=== PATIENT | female | born 1940 | race Caucasian/White ===

== ENCOUNTER 2018-07-18 15:02 | Inpatient (IN) | payer MEDICARE ==
[~2018-07-18] VITALS: Ht 167.6 cm; Wt 86.1 kg
--- NOTE | ~2018-07-18 | MORECARE ---
CASE MANAGEMENT DISCHARGE SUMMARY PATIENT: ANICETO SAHA UNIT: [id number] ADM DATE: 07/18/18 AGE: 78 : 40 SEX: F ROOM/BED: D.8009 AUTHOR: DEWEY,DOC PHYSICIAN: REFERRING PHYSICIAN: ANH BIRCH MD DATE OF SERVICE: 07/18/18 Discharge Plan Patient Name: ANICETO SAHA Facility: [facility]:[place] : 1940 Planned Disposition: Anticipated Discharge Date: Discharge Date: Expected LOS: Initial Reviewer: [email or web address] Initial Review Date: 07/18/2018 Generated: 07/18/18 5:46 pm DCP- Discharge Planning Updated by [email or web address]: Sylvie Fowler on 07/18/18 3:[address] Patient Name: ANICETO SAHA Admission Status: ER Accout number: [id number] Admission Date: 07-18-2018 : 1940 Admission Diagnosis: Attending: ANH BIRCH Current LOS: 1 Anticipated DC Date: Planned Disposition: Primary Insurance: AETNA MEDICARE PPO or HMO Discharge Planning Comments: CM SPOKE WITH PATIENT ABOUT DC PLANNING/NEEDS. STATES PLANS TO DC TO HOME WITH WHEN DISCHARGED. NO FAMILY IN THE ROOM AT THIS TIME AND PATIENT IS SOMEWHAT CONFUSED. SHE WAS TRANSFERRED HERE FROM [place]. PATIENT STATES SHE WAS RECENTLY IN REHAB AT [place], UNSURE IF SHE WAS THERE PRIOR TO GOING TO HOSPITAL AT [place]. CM MAY NEED TO GET MORE INFORMATION FROM THE FAMILY WHEN THEY ARRIVE. CM WILL FOLLOW AND ASSIST NEEDED WITH DC PLANNING/NEEDS. Mother Tester: Sylvie Fowler DCPIA - Discharge Planning Initial Assessment Updated by [id number]: Sylvie Fowler on 07/18/18 4:41 pm * Is the patient Alert and Oriented? No * PCP PRUITT * Pharmacy [facility] IN [place] * Preadmission Environment Acute Care Facility * Facility Name [facility] * ADLs Partial Dependent * Partial ADLs (Assistance needed) Ambulation * Equipment Oxygen Walker * List name and contact numbers for known caregivers / representatives who currently or will assist patient after discharge: GAGANDEEP, , * Community resources currently utilized None Last DP export: 12/8/18 3:33 p Patient Name: ANICETO SAHA Page [phone] at 1646 All edits/amendments must be made on the electronic document DICTATION DATE: 07/18/181645 FIRE PROTECTION FABRICATOR: ZEE 07/18/181645 RPT#: [id number] DC DATE: STATUS: ADM IN [facility] [address] [place] [address] END OF REPORT
--- NOTE | ~2018-07-18 | MORECARE ---
CASE MANAGEMENT DISCHARGE SUMMARY PATIENT: ANICETO SAHA UNIT: [id number] ADM DATE: 07/18/18 AGE: 78 : 40 SEX: F ROOM/BED: D.2303 AUTHOR: DEWEY,DOC PHYSICIAN: REFERRING PHYSICIAN: ANH BIRCH MD DATE OF SERVICE: 07/25/18 Discharge Plan Patient Name: ANICETO SAHA Facility: [facility]:[place] : 1940 Planned Disposition: Home Anticipated Discharge Date: Discharge Date: Expected LOS: Initial Reviewer: [email or web address] Initial Review Date: 07/18/2018 Generated: 07/25/18 7:11 pm Comments DCP- Discharge Planning Updated by [email or web address]: Sraah Eaton on 07/25/18 5:[address] LATE ENTRY 1140 CM ADVISED LATE AM THAT THE DOCTORS HAD DISCUSSED HOSPICE CARE WITH THE PATIENT AND FAMILY. [address] WINTER[address] ADVISED CM THAT [facility] CONSULT WOULD BE APPROPRIATE. CM NOTIFIED [facility] AND SPOKE WITH DAVY. THE HOSPICE NURSE WAS IN HOUSE WITH ANOTHER REFERRAL. PACKET PREPARED FOR REFERRAL. HOSPICE NURSE ON SITE. CM HAD ADVISED PATIENT' SON THAT THE NURSE WAS PRESENT IN THE BUILDING. 1700 NURSE MET WITH THE FAMILY, REVIEWED THE PACKET AND PATIENT HAS BEEN ACCEPTED TO [facility]. DCP- Discharge Planning Updated by [email or web address]: Sylvie Fowler on 07/18/18 3:[address] Patient Name: ANICETO SAHA Admission Status: ER Accout number: [id number] Admission Date: 07-18-2018 : 1940 Admission Diagnosis: Attending: ANH BIRCH Current LOS: 1 Anticipated DC Date: Planned Disposition: Primary Insurance: AETNA MEDICARE PPO or HMO Discharge Planning Comments: CM SPOKE WITH PATIENT ABOUT DC PLANNING/NEEDS. STATES PLANS TO DC TO HOME WITH WHEN DISCHARGED. NO FAMILY IN THE ROOM AT THIS TIME AND PATIENT IS SOMEWHAT CONFUSED. SHE WAS TRANSFERRED HERE FROM [place]. PATIENT STATES SHE WAS RECENTLY IN REHAB AT [place], UNSURE IF SHE WAS THERE PRIOR TO GOING TO HOSPITAL AT [place]. CM MAY NEED TO GET MORE INFORMATION FROM THE FAMILY WHEN THEY ARRIVE. CM WILL FOLLOW AND ASSIST NEEDED WITH DC PLANNING/NEEDS. Washerette Machine Operator: Sylvie Fowler DCPIA - Discharge Planning Initial Assessment Updated by [email or web address]: Sylvie Fowler on 07/18/18 4:41 pm * Is the patient Alert and Oriented? No * PCP PRUITT * Pharmacy [facility] IN [place] * Preadmission Environment Acute Care Facility * Facility Name [facility] * ADLs Partial Dependent * Partial ADLs (Assistance needed) Ambulation * Equipment Oxygen Walker * List name and contact numbers for known caregivers / representatives who currently or will assist patient after discharge: GAGANDEEP, AMBER, * Community resources currently utilized None Last DP export: 07/21/18 11:46 Patient Name: ANICETO SAHA Page 28827 at 1811 All edits/amendments must be made on the electronic document DICTATION DATE: 07/25/181809 PROFESSIONAL ATHLETES COACH: ZEE 07/25/181809 RPT#: [id number] [place] DATE: STATUS: ADM IN [facility] [address] [place] [address] END OF REPORT
--- NOTE | ~2018-07-18 | MORECARE ---
CASE MANAGEMENT DISCHARGE SUMMARY PATIENT: ANICETO SAAH UNIT: [id number] ADM DATE: 07/18/18 AGE: 78 : 40 SEX: F ROOM/BED: D.2303 AUTHOR: DEWEY,DOC PHYSICIAN: REFERRING PHYSICIAN: ANH BIRCH MD DATE OF SERVICE: 07/27/18 Discharge Plan Patient Name: ANICETO SAHA Facility: [facility]:[place] : 1940 Planned Disposition: Home Anticipated Discharge Date: Discharge Date: 07/25/2018 Expected LOS: Initial Reviewer: [email or web address] Initial Review Date: 07/18/2018 Generated: 07/27/18 11:05 am Comments DCP- Discharge Planning Updated by [email or web address]: Sarah Eaton on 07/25/18 5:[address] LATE ENTRY 1140 CM ADVISED LATE AM THAT THE DOCTORS HAD DISCUSSED HOSPICE CARE WITH THE PATIENT AND FAMILY. [address] DR WINTER[address] ADVISED THAT [facility] CONSULT WOULD BE APPROPRIATE. CM NOTIFIED [facility] AND SPOKE WITH DAVY. THE HOSPICE NURSE WAS IN HOUSE WITH ANOTHER REFERRAL. PACKET PREPARED FOR REFERRAL. HOSPICE NURSE ON SITE. CM HAD ADVISED PATIENT' SON THAT THE NURSE WAS PRESENT IN THE BUILDING. 1700 NURSE MET WITH THE FAMILY, REVIEWED THE PACKET AND PATIENT HAS BEEN ACCEPTED TO [facility]. DCP- Discharge Planning Updated by [email or web address]: Sylvie Fowler on 07/18/18 3:[address] Patient Name: ANICETO SAHA Admission Status: ER Accout number: [id number] Admission Date: 07-18-2018 : 1940 Admission Diagnosis: Attending: ANH BIRCH Current LOS: 1 Anticipated DC Date: Planned Disposition: Primary Insurance: AETNA MEDICARE PPO or HMO Discharge Planning Comments: CM SPOKE WITH PATIENT ABOUT DC PLANNING/NEEDS. STATES PLANS TO DC TO HOME WITH WHEN DISCHARGED. NO FAMILY IN THE ROOM AT THIS TIME AND PATIENT IS SOMEWHAT CONFUSED. SHE WAS TRANSFERRED HERE FROM [place]. PATIENT STATES SHE WAS RECENTLY IN REHAB AT [place], UNSURE IF SHE WAS THERE PRIOR TO GOING TO HOSPITAL AT [place]. CM MAY NEED TO GET MORE INFORMATION FROM THE FAMILY WHEN THEY ARRIVE. CM WILL FOLLOW AND ASSIST NEEDED WITH DC PLANNING/NEEDS. Executive Account Manager: Sylvie Fowler DCPIA - Discharge Planning Initial Assessment Updated by [email or web address]: Sylvie Fowler on 07/18/18 4:41 pm * Is the patient Alert and Oriented? No * PCP PRUITT * Pharmacy [facility] IN [place] * Preadmission Environment Acute Care Facility * Facility Name [facility] * ADLs Partial Dependent * Partial ADLs (Assistance needed) Ambulation * Equipment Oxygen Walker * List name and contact numbers for known caregivers / representatives who currently or will assist patient after discharge: GAGANDEEP, , * Community resources currently utilized None Last DP export: 07/25/18 5:11 Patient Name: ANICETO SAHA Page 73766 at 1005 All edits/amendments must be made on the electronic document DICTATION DATE: 07/27/18 1005 FEATHER MAKER: ZEE 07/27/18 1005 RPT#: [id number] DC DATE:07/25/18 STATUS: DIS IN [facility] [address] [place] [address] END OF REPORT
--- NOTE | ~2018-07-18 | MORECARE ---
CASE MANAGEMENT DISCHARGE SUMMARY PATIENT: ANICETO SAHA UNIT: [id number] ADM DATE: 07/18/18 AGE: 78 : 40 SEX: F ROOM/BED: D.5160 AUTHOR: AMRIT PALOMO PHYSICIAN: REFERRING PHYSICIAN: ANH BIRCH MD DATE OF SERVICE: 07/18/18 Discharge Plan Patient Name: ANICETO SAHA [facility] [facility] 1940 Planned Disposition: Anticipated Discharge Date: Discharge Date: Expected LOS: Initial Reviewer: [email or web address] Initial Review Date: 07/18/2018 Generated: 07/18/18 5:33 pm Patient Name: ANICETO SAHA Page 09454 at 1633 All edits/amendments must be made on the electronic document DICTATION DATE: 07/18/18 163 CORPORATE CONTROLLER: ZEE 07/18/18 1633 RPT#: [id number] DC DATE: STATUS: ADM IN [facility] [address] [place] [address] END OF REPORT
--- NOTE | ~2018-07-18 | MORECARE ---
CASE MANAGEMENT DISCHARGE SUMMARY PATIENT: ANICETO SAHA UNIT: [id number] ADM DATE: 07/18/18 AGE: 78 : 40 SEX: F ROOM/BED: D.2303 AUTHOR: DEWEY,DOC PHYSICIAN: REFERRING PHYSICIAN: ANH BIRCH MD DATE OF SERVICE: 07/21/18 Discharge Plan Patient Name: ANICEOT SAHA Facility: [facility]:[place] : 1940 Planned Disposition: Home Anticipated Discharge Date: Discharge Date: Expected LOS: Initial Reviewer: [email or web address] Initial Review Date: 07/18/2018 Generated: 07/21/18 1:46 pm DCP- Discharge Planning Updated by [email or web address]: Sylvie Fowler on 07/18/18 3:[address] Patient Name: ANICETO SAHA Admission Status: ER Accout number: [id number] Admission Date: 07-18-2018 : 1940 Admission Diagnosis: Attending: ANH BIRCH Current LOS: 1 Anticipated DC Date: Planned Disposition: Primary Insurance: AETNA MEDICARE PPO or HMO Discharge Planning Comments: CM SPOKE WITH PATIENT ABOUT DC PLANNING/NEEDS. STATES PLANS TO DC TO HOME WITH WHEN DISCHARGED. NO FAMILY IN THE ROOM AT THIS TIME AND PATIENT IS SOMEWHAT CONFUSED. SHE WAS TRANSFERRED HERE FROM [place]. PATIENT STATES SHE WAS RECENTLY IN REHAB AT [place], UNSURE IF SHE WAS THERE PRIOR TO GOING TO HOSPITAL AT [place]. CM MAY NEED TO GET MORE INFORMATION FROM THE FAMILY WHEN THEY ARRIVE. CM WILL FOLLOW AND ASSIST NEEDED WITH DC PLANNING/NEEDS. Strip Tank Tender: Sylvie Fowler DCPIA - Discharge Planning Initial Assessment Updated by [email or web address]: Sylvie Fowler on 07/18/18 4:41 pm * Is the patient Alert and Oriented? No * PCP PRUITT * Pharmacy [facility] IN [place] * Preadmission Environment Acute Care Facility * Facility Name [facility] * ADLs Partial Dependent * Partial ADLs (Assistance needed) Ambulation * Equipment Oxygen Walker * List name and contact numbers for known caregivers / representatives who currently or will assist patient after discharge: GAGANDEEP, , * Community resources currently utilized None Last DP export: 07/18/18 3:46 p Patient Name: ANICETO SAHA Page 30721 at 1246 All edits/amendments must be made on the electronic document DICTATION DATE: 07/21/181244 VENDOR MANAGEMENT ASSOCIATE: ZEE 07/21/181244 RPT#: [id number] DC DATE: STATUS: ADM IN [facility] [address] [place] [address] END OF REPORT
--- NOTE | ~2018-07-18 | EC ---
PATIENT:ANICETO SAHA DATE OF SERVICE: 07/18/18 SEX: F MEDICAL RECORD: [id number] DATE OF : 40 LOCATION:[facility] [address].230 AGE OF PATIENT: 78 ADMISSION DATE: 07/18/18 REFERRING PHYSICIAN: INTERPRETING PHYSICIAN: YING CHRISTIE MD ECHOCARDIOGRAM REPORT ECHO CHARGES 4 ECHO COMPLETE Date: 07/19/18 CLINICAL DIAGNOSIS: CHF ECHOCARDIOGRAPHIC MEASUREMENTS (adult normal given) AC root (d.<3.7cm) 2.8 cm LV Septum d (<1.2 cm> 1.4 cm Valve Excursion 1.2 cm LV Septum (systole) 1.8 cm Left Atria (s.<4.0cm> 3.1 cm LVPW d(<1.2cm) 0.8 cm RV (d.<2.3cm) 3.2 cm LVPW (sytole) 0.9 cm LV diastole(<5.6CM) 4.4 cm MV E-F(>70mm/sec) cm LV systole 3.8 cm LVOT Diameter 1.3 cm MV exc.(>10mm) cm Est.ejection fraction (50-75%) % DOPPLER: LVIT cm/sec A 34 cm/sec E 87 cm/sec LA cm/sec RVSP 51.5 mmHg LVOT 57 cm/sec AOP1/2T m/s Asc. Ao 96 cm/sec RVOT 45 cm/sec RA cm/sec PA 51 cm/sec AV Gradient Peak 3.7 mmHg AV Mean 2.1 mmHg AV Area 0.9 cm MV Gradient Peak 3.9 mmHg MV Mean 1.5 mmHg MV Area cm COMMENTS: Clean Out Driller: Roberta [facility] Conveyor Belt Repairer: 1 Dr. Christie TAPE# PACS Pericardial Effusion N DATE OF SERVICE: 07/19/2018 FINDINGS: 1. Left ventricular chamber size is within normal limits. Left ventricular systolic function is normal. Overall ejection fraction is estimated at 55%. 2. Left atrium, right atrium, and right ventricle chamber sizes are within normal limit. 3. Valvular structures have normal structure and motion. 4. Doppler interrogation reveals mild mitral regurgitation and mild tricuspid regurgitation. No other valvular insufficiency or stenosis; however, pulmonary ECHOCARDIOGRAM REPORT [id number] ANICETO SAHA systolic pressure is elevated, estimated at 51 mmHg. 5. No evidence of pericardial effusion or left ventricular thrombus. TRANSINT:[id number] Voice Confirmation ID: [id number] DOCUMENT ID: [id number] YING CHRISTIE MD at 1228 CC: [id number] DICTATION DATE: 07/20/18 1003 SAND CUTTER: 07/20/18 1130 ADM IN [facility] [address] [place] [address]
--- NOTE | ~2018-07-18 | CN ---
PATIENT NAME:ANICETO OLIVAREZ MEDICAL RECORD: [id number] : [birth year] LOCATION:[id number] ADMIT DATE: 07/18/18 ACCOUNT: [id number] CONSULTING PHYSICIAN: DIANE LARA MD REFERRING PHYSICIAN: ANH BIRCH MD DATE OF CONSULTATION: 07/20/2018 Pulmonary Consultation CONSULT REQUESTING PHYSICIAN: Per Villagomez MD REASON FOR CONSULTATION: Mental status changes, acute hypercapnic respiratory failure. HISTORY OF PRESENT ILLNESS: Ms. Olivarez is a 78-year-old female who underwent thoracentesis today. The patient got 25 mcg of fentanyl, but post-procedure, the patient was very sleepy and she was in respiratory distress, put on BiPAP. Her CO2 was in the 80s and pH was 7.2. The repeat ABG, the CO2 is not improving. REVIEW OF SYSTEMS: As in history of present illness, the history was taken mainly by talking to the nursing staff and to the patient's . PAST MEDICAL HISTORY: 1. Congestive heart failure with chronic diastolic dysfunction. 2. Hypertension. 3. Hyperlipidemia. 4. Diabetes mellitus type 2. 5. Hypothyroidism. 6. Recurrent pleural effusion. 7. Anxiety disorder. PAST SURGICAL HISTORY: 1. She has appendectomy. 2. T&A. 3. Hysterectomy. 4. Status post pacemaker placement. ALLERGIES: SHE IS ALLERGIC TO ADHESIVE TAPES. MEDICATIONS: On Neoprospecta is reviewed. PERSONAL AND SOCIAL HISTORY: The patient never smoked. She is a nondrinker. FAMILY HISTORY: Significant for cardiovascular diseases. PHYSICAL EXAMINATION: GENERAL: Now, the patient is lethargic. VITAL SIGNS: The blood pressure is 104/64, pulse is 60, respiration is 12, temperature 97.3, SPO2 is 93% on BiPAP. HEENT: Conjunctivae are pink. Sclerae are nonicteric. NECK: Supple, no JVD. CHEST: There are bilateral crackles. No wheezing. HEART: Rate and rhythm regular, grade II/ systolic murmur. ABDOMEN: Soft, bowel sounds present. No hepatosplenomegaly. CONSULT REPORT [id number] ANICETO OLIVAREZ RECTAL: Deferred. EXTREMITIES: No cyanosis, no clubbing. There is 2+ pedal edema. SKIN: Warm, normal turgor. CENTRAL NERVOUS SYSTEM: The patient is very lethargic and confused. LABORATORY DATA: CBC: WBC 9.5, hemoglobin 11.2, hematocrit 38.7, the platelet count 158. Chemistry: Sodium is 141, potassium is 4, BUN is 23, creatinine is 1, serum glucose 135. The troponin is 0.16. The proBNP 4814. ABG: pH is 7.25, pCO2 is 81.3, the pO2 is 112, bicarbonate is 35.6. IMPRESSION: 1. Acute hypercapnic respiratory failure secondary to narcotic medication. 2. Respiratory acidosis secondary to acute hypercapnic respiratory failure secondary to narcotic medication. 3. Bilateral pleural effusion secondary to congestive heart failure, status post thoracentesis. 4. Acute mental status changes secondary to metabolic encephalopathy and hypercarbia. 5. Secondary pulmonary hypertension. 6. Congestive heart failure with chronic diastolic dysfunction with the EF 55%. RECOMMENDATION: 1. Continue the BiPAP, adjust the settings. 2. Transfer the patient to the ICU. 3. The patient got a dose of naloxone. 4. Check the ammonia level. If it is high, start her on lactulose. 5. Lasix 40 mg IV q.12 hourly, Synthroid 88 mcg daily. We will hold on any pain medication and narcotics. Continue empiric Rocephin and azithromycin. I will doubt pneumonia. Xopenex nebulizer p.r.n. Dr. Villagomez, thank you for involving me in the care of Ms. Olivarez. Follow up labs and chest radiograph. TRANSINT:[id number] Voice Confirmation ID: [id number] DOCUMENT ID: [id number] DIANE LARA MD at 1339 CC: [id number] DICTATION DATE: 07/20/181728 NEON ELECTRICIAN: 07/20/182021 ADM IN [facility] [address] [place] [id number]
[2018-07-18] MEDS ORDERED: PACERONE200 MG PO (15:32)
[2018-07-18] MEDS ORDERED: DULCOLAX5 MG PO (15:33)
[2018-07-18] MEDS ORDERED: COREG 3.1253.125 MG PO (15:34)
[2018-07-18] MEDS ORDERED: LASIX40 MG PO (15:35)
[2018-07-18] MEDS ORDERED: CYMBALTA30 MG PO (15:35)
[2018-07-18] MEDS ORDERED: BASAGLAR K100 UNIT/1 SC ×3 (15:37→16:27)
[2018-07-18] MEDS ORDERED: BASAGLAR K100 UNIT/1 (15:38)
[2018-07-18] MEDS ORDERED: LEVOXYL25 MCG PO (15:40)
[2018-07-18] MEDS ORDERED: KLOR-CON 1010 MEQ PO (15:41)
[2018-07-18] MEDS ORDERED: SEROQUEL XR50 MG PO (15:42)
[2018-07-18] MEDS ORDERED: ACETAMINOPHEN325 MG PO (15:43)
[2018-07-18] MEDS ORDERED: EFFEXOR XR150 MG PO (15:44)
[2018-07-18 16:02] LABS: THYROID STIMULATING HORMONE 5.07 uIU/mL (0.36-3.74)
[2018-07-18 16:06] LABS: TROPONIN-I 0.155 ng/mL (0.000-0.060)
[2018-07-18 16:12] LABS: BASOPHILS 0.2 % (0-2); EOSINOPHILS 0.6 % (0-7); HEMATOCRIT 36.5 % (36.0-48.0); HEMOGLOBIN 10.9 g/dL (12-16); IMMATURE GRANULOCYTES 0.1 % (0-5); LYMPHOCYTES 39.8 % (15-50); MCHC 29.9 g/dL (31.0-37.0); MCV 77.2 fL (80.0-100.0); MEAN PLATELET VOLUME 10.6 fL (7.4-10.4); MONOCYTES 10.1 % (2-11); NEUTROPHILS 49.2 % (40-80); PLATELET COUNT 170 10x3/uL (130-400); RBC 4.73 10x6/uL (4.00-5.40); RDW 18.7 % (11.5-14.5); WBC 10.7 10x3/uL (4.8-10.8)
[2018-07-18 16:18] LABS: ANION GAP 6.2 mmol/L (8-16); CALCIUM 8.1 mg/dL (8.5-10.1); CARBON DIOXIDE 38.6 mmol/L (21.0-32.0); CREATININE - SERUM 0.9 mg/dL (0.6-1.3); POTASSIUM - SERUM 3.8 mmol/L (3.5-5.1)
[2018-07-18] MEDS ORDERED: POTASSIUM CHLO20 MEQ PO (16:24)
[2018-07-18] MEDS ORDERED: REMERON30 MG PO (16:25)
[2018-07-18] MEDS ORDERED: GLUCOTROL 5 MG T5 MG PO (16:26)
[2018-07-18 16:27] VITALS: BP 140/57; BMI 28.3
[2018-07-18 20:30] VITALS: BP 155/68
[2018-07-19 04:30] VITALS: BP 140/76
[2018-07-19 04:40] LABS: HEMATOCRIT 36.5 % (36.0-48.0); HEMOGLOBIN 10.9 g/dL (12-16); MCH 23.1 pg (26.0-34.0); MCHC 29.9 g/dL (31.0-37.0); MCV 77.3 fL (80.0-100.0); MEAN PLATELET VOLUME 10.6 fL (7.4-10.4); PLATELET COUNT 184 10x3/uL (130-400); RBC 4.72 10x6/uL (4.00-5.40); RDW 18.5 % (11.5-14.5); WBC 9.9 10x3/uL (4.8-10.8)
[2018-07-19 04:58] LABS: ANION GAP 5.6 mmol/L (8-16); CALCIUM 8.5 mg/dL (8.5-10.1); CARBON DIOXIDE 37.5 mmol/L (21.0-32.0); CREATININE - SERUM 0.9 mg/dL (0.6-1.3); PHOSPHOROUS 3.9 mg/dL (2.5-4.9); POTASSIUM - SERUM 4.1 mmol/L (3.5-5.1)
[2018-07-19 05:04] LABS: EOSINOPHILS 1 % (0-7); LYMPHOCYTES 42 % (15-50); MONOCYTES 9 % (2-11); NEUTROPHILS 48 % (40-80); PLATELET ESTIMATE NORMAL
[2018-07-19 08:38] VITALS: BP 139/92
[2018-07-19 10:50] LABS: % SATURATION 7 % (15-55); IRON 24 ug/dl (35-150); TOTAL IRON BIND CAPACITY 336 ug/dl (260-445); UNSAT IRON BIND CAPACITY 312 ug/dl (150-375)
[2018-07-19 11:07] LABS: FERRITIN 46 ng/mL (3-244); PRO BNP 4814 pg/mL (0-450)
[2018-07-19 11:19] LABS: APTT 36.2 SECONDS (22.8-39.4); INR 1.33 (0.85-1.17); PROTIME 15.9 SECONDS (11.6-15.0)
[2018-07-19 11:20] LABS: D-DIMER-QUANTITATIVE 1.95 ug/mLFEU (0.20-0.54)
[2018-07-19 12:19] VITALS: BP 174/73
[2018-07-19 15:42] VITALS: BP 146/80
[2018-07-19 20:30] VITALS: BP 120/50
[2018-07-20] VITALS (16 sets, daily range): BP systolic 90–113; BP diastolic 43–73; BMI 27.4
[2018-07-20 05:40] LABS: HEMATOCRIT 38.7 % (36.0-48.0); HEMOGLOBIN 11.2 g/dL (12-16); MCH 22.8 pg (26.0-34.0); MCHC 28.9 g/dL (31.0-37.0); MCV 78.7 fL (80.0-100.0); MEAN PLATELET VOLUME 10.8 fL (7.4-10.4); PLATELET COUNT 158 10x3/uL (130-400); RBC 4.92 10x6/uL (4.00-5.40); RDW 19.1 % (11.5-14.5); WBC 9.5 10x3/uL (4.8-10.8)
[2018-07-20 06:09] LABS: ANION GAP 10.5 mmol/L (8-16); CALCIUM 7.8 mg/dL (8.5-10.1); CARBON DIOXIDE 33.5 mmol/L (21.0-32.0); CHOL - HDL RATIO 3.3 ratio (2.3-4.1); LDL-HDL RATIO 1.7 ratio (1.5-3.5); MAGNESIUM - SERUM 1.9 mg/dL (1.8-2.4)
[2018-07-20 07:25] LABS: PLATELET ESTIMATE NORMAL; PLATELET MORPHOLOGY NORMAL PLT MORPH
[2018-07-21] VITALS (24 sets, daily range): BP systolic 70–120; BP diastolic 36–72; Ht 167.6 cm; Wt 86.1 kg
[2018-07-21 03:44] LABS: BASOPHILS 0.1 % (0-2); EOSINOPHILS 0 % (0-7); HEMATOCRIT 33.5 % (36.0-48.0); HEMOGLOBIN 9.5 g/dL (12-16); IMMATURE GRANULOCYTES 0.2 % (0-5); LYMPHOCYTES 38.7 % (15-50); MCH 22.8 pg (26.0-34.0); MCHC 28.4 g/dL (31.0-37.0); MCV 80.5 fL (80.0-100.0); MEAN PLATELET VOLUME 11.2 fL (7.4-10.4); MONOCYTES 11.7 % (2-11); NEUTROPHILS 49.3 % (40-80); PLATELET COUNT 140 10x3/uL (130-400); RBC 4.16 10x6/uL (4.00-5.40); RDW 18.8 % (11.5-14.5); WBC 9.2 10x3/uL (4.8-10.8)
[2018-07-21 04:05] LABS: ANION GAP 8.4 mmol/L (8-16); CARBON DIOXIDE 36.5 mmol/L (21.0-32.0); CREATININE - SERUM 1.2 mg/dL (0.6-1.3); MAGNESIUM - SERUM 2.1 mg/dL (1.8-2.4); PHOSPHOROUS 4.3 mg/dL (2.5-4.9); POTASSIUM - SERUM 3.9 mmol/L (3.5-5.1)
[2018-07-21 08:19] LABS: FOLATE (FOLIC ACID) - SERUM 6.7 ng/mL (>3.0)
[2018-07-22] VITALS (24 sets, daily range): BP systolic 92–121; BP diastolic 39–96
[2018-07-22 04:28] LABS: BASOPHILS 0.1 % (0-2); EOSINOPHILS 0.2 % (0-7); HEMATOCRIT 31.4 % (36.0-48.0); HEMOGLOBIN 9.2 g/dL (12-16); IMMATURE GRANULOCYTES 0.1 % (0-5); LYMPHOCYTES 39.7 % (15-50); MCH 22.8 pg (26.0-34.0); MCHC 29.3 g/dL (31.0-37.0); MEAN PLATELET VOLUME 11.1 fL (7.4-10.4); MONOCYTES 14.2 % (2-11); NEUTROPHILS 45.7 % (40-80); PLATELET COUNT 159 10x3/uL (130-400); RBC 4.03 10x6/uL (4.00-5.40); RDW 18.9 % (11.5-14.5)
[2018-07-22 04:31] LABS: MCV 77.9 fL (80.0-100.0)
[2018-07-22 04:54] LABS: ANION GAP 9.1 mmol/L (8-16); CARBON DIOXIDE 34.3 mmol/L (21.0-32.0); CREATININE - SERUM 1.4 mg/dL (0.6-1.3); POTASSIUM - SERUM 3.4 mmol/L (3.5-5.1)
[2018-07-22 05:18] LABS: PHOSPHOROUS 2.5 mg/dL (2.5-4.9)
[2018-07-22 10:35] LABS: EOS BF 0 %; MACROPHAGES BF 5 %; MESOTHELIALS BF 0 %; NEUT - BF 20 %
[2018-07-23] VITALS (17 sets, daily range): BP systolic 95–162; BP diastolic 35–84
[2018-07-23 05:25] LABS: BASOPHILS 0.3 % (0-2); EOSINOPHILS 0.1 % (0-7); HEMATOCRIT 35.8 % (36.0-48.0); HEMOGLOBIN 10.2 g/dL (12-16); IMMATURE GRANULOCYTES 0.3 % (0-5); MCH 22.9 pg (26.0-34.0); MCHC 28.5 g/dL (31.0-37.0); MEAN PLATELET VOLUME 11.4 fL (7.4-10.4); MONOCYTES 11.6 % (2-11); NEUTROPHILS 43.7 % (40-80); PLATELET COUNT 173 10x3/uL (130-400); RBC 4.46 10x6/uL (4.00-5.40); RDW 19.1 % (11.5-14.5); WBC 9.5 10x3/uL (4.8-10.8)
[2018-07-23 05:26] LABS: MCV 80.3 fL (80.0-100.0)
[2018-07-23 05:47] LABS: ANION GAP 8.1 mmol/L (8-16); CALCIUM 8.7 mg/dL (8.5-10.1); CARBON DIOXIDE 35.8 mmol/L (21.0-32.0); CREATININE - SERUM 1.4 mg/dL (0.6-1.3); MAGNESIUM - SERUM 2.2 mg/dL (1.8-2.4); PHOSPHOROUS 3.1 mg/dL (2.5-4.9); POTASSIUM - SERUM 3.9 mmol/L (3.5-5.1)
[2018-07-24] VITALS (17 sets, daily range): BP systolic 84–138; BP diastolic 23–79
[2018-07-25] VITALS (16 sets, daily range): BP systolic 85–114; BP diastolic 33–68
[2018-07-25 04:52] LABS: ALBUMIN 1.1 g/dL (3.4-5.0); ANION GAP 4.5 mmol/L (8-16); BILIRUBIN - TOTAL 0.36 mg/dL (0.2-1.3); CALCIUM 7.3 mg/dL (8.5-10.1); CARBON DIOXIDE 35.7 mmol/L (21.0-32.0); MAGNESIUM - SERUM 1.9 mg/dL (1.8-2.4); POTASSIUM - SERUM 3.2 mmol/L (3.5-5.1)
[2018-07-25 05:14] LABS: BASOPHILS 0.3 % (0-2); HEMATOCRIT 35.9 % (36.0-48.0); IMMATURE GRANULOCYTES 0.1 % (0-5); LYMPHOCYTES 40.2 % (15-50); MCHC 28.7 g/dL (31.0-37.0); MCV 80.3 fL (80.0-100.0); MEAN PLATELET VOLUME 10.5 fL (7.4-10.4); MONOCYTES 11.3 % (2-11); NEUTROPHILS 47.1 % (40-80); RBC 4.47 10x6/uL (4.00-5.40); RDW 19.6 % (11.5-14.5); WBC 7.2 10x3/uL (4.8-10.8)
[2018-07-25 05:15] LABS: HEMOGLOBIN 11.6 g/dL (12-16); PLATELET COUNT 128 10x3/uL (130-400)
== END 2018-07-25 20:17 | disposition hospice, inpatient (51) | DRG 291 ==
LOC: D.ER 15:02 → D.ICU 15:46 → D.M2 15:46 → D.ICU 07-20 18:23 → D.M2 07-23 15:13 → D.ICU 07-24 11:10
PROVIDERS: Family Medicine; Internal Medicine Nephrology; Internal Medicine Pulmonary Disease; Radiology Diagnostic Radiology
PROC: 5A09357 Assistance with Respiratory Ventilation, Less than 24 Consecutive Hours, Continuous Positive Airway Pressure (ICD-10-PCS; 2018-07-20)
PROC: 05HY33Z Insertion of Infusion Device into Upper Vein, Percutaneous Approach (ICD-10-PCS; 2018-07-20)
PROC: 0W993ZZ Drainage of Right Pleural Cavity, Percutaneous Approach (ICD-10-PCS; principal; 2018-07-20 13:36)
DX: I11.0 Hypertensive heart disease with heart failure (principal); J96.02 Acute respiratory failure with hypercapnia; G93.41 Metabolic encephalopathy; J18.9 Pneumonia, unspecified organism; R53.2 Functional quadriplegia; E87.2 Acidosis; J91.8 Pleural effusion in other conditions classified elsewhere; I50.33 Acute on chronic diastolic (congestive) heart failure; E78.5 Hyperlipidemia, unspecified; E11.9 Type 2 diabetes mellitus without complications; E03.9 Hypothyroidism, unspecified; I48.0 Paroxysmal atrial fibrillation; F41.9 Anxiety disorder, unspecified; D50.9 Iron deficiency anemia, unspecified; Z95.0 Presence of cardiac pacemaker; T40.605A Adverse effect of unspecified narcotics, initial encounter; I27.20 Pulmonary hypertension, unspecified; Z66 Do not resuscitate

== ENCOUNTER 2018-07-25 19:24 | Inpatient (IN) | payer MEDICARE ==
[~2018-07-25] VITALS: Ht 167.6 cm; Wt 87.6 kg
--- NOTE | ~2018-07-25 | MORECARE ---
CASE MANAGEMENT DISCHARGE SUMMARY PATIENT: ANICETO SAHA UNIT: [id number] ADM DATE: 07/25/18 AGE: 78 : 40 SEX: F ROOM/BED: D.2101 AUTHOR: AMRIT PALOMO PHYSICIAN: REFERRING PHYSICIAN: SU MATTSON MD DATE OF SERVICE: 07/27/18 Discharge Plan Patient Name: ANICETO SAHA [facility] [facility] 1940 Planned Disposition: Nursing Facility ERNESTO Cert Anticipated Discharge Date: 07/27/18 Discharge Date: Expected LOS: 2 Initial Reviewer: [email or web address] Initial Review Date: 07/25/2018 Generated: 07/27/18 10:04 am External Providers External Provider: [facility] Next Contact Date: 07/27/2018 Service Request Date: Service Type: Resolution: Reviewer: Comments: Patient Name: ANICETO SAHA Page 55685 at 0904 All edits/amendments must be made on the electronic document DICTATION DATE: 07/27/18903 SURVEY RESEARCH PROFESSOR: ZEE 07/27/18903 RPT#: [id number] DC DATE: STATUS: ADM IN [facility] [address] [place] [address] END OF REPORT
--- NOTE | ~2018-07-25 | MORECARE ---
CASE MANAGEMENT DISCHARGE SUMMARY PATIENT: ANICETO SAHA UNIT: [id number] ADM DATE: 07/25/18 AGE: 78 : 40 SEX: F ROOM/BED: D.2106 AUTHOR: DEWEY,DOC PHYSICIAN: REFERRING PHYSICIAN: SU MATTSON MD DATE OF SERVICE: 07/27/18 Discharge Plan Patient Name: ANICETO SAHA Facility: [facility]:[place] : 1940 Planned Disposition: Nursing Facility ERNESTO Cert Anticipated Discharge Date: 07/27/18 Discharge Date: Expected LOS: 2 Initial Reviewer: [email or web address] Initial Review Date: 07/25/2018 Generated: 07/27/18 4:17 pm Comments DCP- Discharge Planning Updated by [email or web address]: Rehan Sherman on 07/27/18 8:[address] Patient Name: ANICETO SAHA Admission Status: Elective Accout number: [id number] Admission Date: 07-25-2018 : 1940 Admission Diagnosis: Attending: SU MATTSON Current LOS: 2 Anticipated DC Date: 07-27-2018 Planned Disposition: Nursing Facility ERNESTO Cert Primary Insurance: AETNA MEDICARE PPO or HMO PLANNED EXTERNAL PROVIDER: [facility] [place], LONG TERM CARE MEDICAID BED Discharge Planning Comments: CM MET WITH PT'S SPOUSE IN ICU WAITING ROOM AT HIS REQUEST. SPOUSE REPORTS PT WAS ADMITTED TO [facility] YESTERDAY AND THAT THEY ARE WANTING PT AT [facility] IN [place] WITH [facility]. SPOUSE REPORTS HE HAS CALLED [facility] WHO IS WAITING REFERRAL INFORMATION. CM CALLED [facility], , SPOKE TO TYRONE WHO REPORTED THAT [facility] RELASTER WAS GOING TO PLACE PT AND HAVE TRANSFERRED. CM EXPLAINED THAT PT IS NOW [facility] AND CM'S UNDERSTANDING IS THAT [facility] WOULD TAKE CARE OF PT'S NEEDS. TYRONE WILL CONTACT HER WEIGHER AND MIXER AND NOTIFY OF FAMILY REQUEST AND WILL CALL [facility] TO DISCUSS HOSPICE TRANSFER. CM NOTIFIED [facility] OF [facility] OF PLACEMENT REFERRAL, , FAXED REFERRAL TO [facility] VIA [facility] AT [phone]. CM FAXED REFERRAL TO [facility] AT [phone]. CM WAITING ADMISSION DETERMINATION FROM [facility] AND FOR [facility] TO MAKE HOSPICE TRANSFER ARRANGEMENTS [facility]. Associate Field Service Engineer: Rehan Sherman DCPIA - Discharge Planning Initial Assessment Updated by [email or web address]: Rehan Sherman on 07/27/18 9:26 am * Is the patient Alert and Oriented? No * How many steps to enter\exit or inside your home? N/A * PCP DR MATTSON * Pharmacy [facility] * Preadmission Environment Hospice * Facility Name [facility] * ADLs Total Dependent * Equipment Other * Other Equipment ALL EQUIPMENT PROVIDED BY FACILITY * List name and contact numbers for known caregivers / representatives who currently or will assist patient after discharge: GAGANDEEP SAHA, SPOUSE, * Verbal permission to speak to the caregivers and representatives has been obtained from the patient. N/A * Community resources currently utilized Other * Please name any agencies selected above. [facility] - [facility] * Additional services required to return to the preadmission environment? No * Can the patient safely return to the preadmission environment? Yes * Has this patient been hospitalized within the prior 30 days at any hospital? Yes Last DP export: 07/27/18 8:43 Patient Name: ANICETO SAHA Page 98406 at 1518 All edits/amendments must be made on the electronic document DICTATION DATE: 07/27/181516 APRON WORKER: ZEE 07/27/181516 RPT#: [id number] [place] DATE: STATUS: ADM IN [facility] [address] [place] [address] END OF REPORT
--- NOTE | ~2018-07-25 | MORECARE ---
CASE MANAGEMENT DISCHARGE SUMMARY PATIENT: ANICETO SAHA UNIT: [id number] ADM DATE: 07/25/18 AGE: 78 : 40 SEX: F ROOM/BED: D.2101 AUTHOR: AMRIT PALOMO PHYSICIAN: REFERRING PHYSICIAN: SU MATTSON MD DATE OF SERVICE: 07/27/18 Discharge Plan Patient Name: ANICETO SAHA [facility] [facility] 1940 Planned Disposition: Nursing Facility ERNESTO Cert Anticipated Discharge Date: 07/27/18 Discharge Date: Expected LOS: 2 Initial Reviewer: [email or web address] Initial Review Date: 07/25/2018 Generated: 07/27/18 10:17 am External Providers External Provider: [facility] Next Contact Date: 07/27/2018 Service Request Date: Service Type: Resolution: Reviewer: Comments: Last DP export: 07/27/18 8:04 Patient Name: ANICETO SAHA Page 23108 at 0917 All edits/amendments must be made on the electronic document DICTATION DATE: 07/27/18916 HYDRAULIC PRESS TENDER: ZEE 07/27/18916 RPT#: [id number] DC DATE: STATUS: ADM IN [facility] [address] [place] [address] END OF REPORT
--- NOTE | ~2018-07-25 | MORECARE ---
CASE MANAGEMENT DISCHARGE SUMMARY PATIENT: ANICETO SAHA UNIT: [id number] ADM DATE: 07/25/18 AGE: 78 : 40 SEX: F ROOM/BED: D.2102 AUTHOR: DEWEY,DOC PHYSICIAN: REFERRING PHYSICIAN: SU MATTSON MD DATE OF SERVICE: 07/27/18 Discharge Plan Patient Name: ANICETO SAHA Facility: [facility]:[place] : 1940 Planned Disposition: Nursing Facility [facility] Cert Anticipated Discharge Date: 07/27/18 Discharge Date: Expected LOS: 2 Initial Reviewer: [id number] Initial Review Date: 07/25/2018 Generated: 07/27/18 4:35 pm Comments DCP- Discharge Planning Updated by [email or web address]: Rehan Sherman on 07/27/18 2:[address] Patient Name: ANICETO SAHA Encounter No: [id number] : 1940 Primary Insurance: AETNA MEDICARE PPO or HMO Anticipated DC Date: 07-27-2018 Planned Disposition: Nursing Facility [facility] Cert External Planned Provider: [facility], LONG TERM CARE MEDICAID BED DCP follow-up note: CM RECEIVED MESSAGE FROM SALEEM OF [facility], , THEY WILL ACCEPT TODAY. NEETU SPOKE TO AGNIESZKA OF [facility], , WHO REPORTS THEY WILL ACCEPT AND ADMIT UPON PT ARRIVAL AT INTERMEDIATE. NEETU SPOKE TO IRMA [facility], NOTIFIED OF ARRANGEMENTS MADE. LONNIE CONTACTED DR. MATTSON AND RECEIVED DISCHARGE ORDERS. NEETU SPOKE TO PT'S SPOUSE WHO WILL NOW GO TO [place] AND WILL ASSIST IN ADMISSION PAPERWORK AT FACILITY IF NEEDED; SPOUSE REQUESTED TRANSPORT VIA [facility] OUT OF [place]. DRY CLEANING SUPERVISOR NURSE NOTIFIED. NEETU FAXED DISCHARGE INFORMATION TO [facility] AT [phone]. CM FAXED DISCHARGE INFORMATION TO [facility] AT [phone]. NURSE REPORT TO BE CALLED TO [facility] AT [phone]. PT TO TRANSPORT VIA AMBULANCE. YUMIKO Melton DCP- Discharge Planning Updated by [email or web address]: Rehan Sherman on 07/27/18 8:[address] Patient Name: ANICETO SAHA Admission Status: Elective Accout number: [id number] Admission Date: 07-25-2018 : 1940 Admission Diagnosis: Attending: SU MATTSON Current LOS: 2 Anticipated DC Date: 07-27-2018 Planned Disposition: Nursing Facility [facility] Cert Primary Insurance: AETNA MEDICARE PPO or HMO PLANNED EXTERNAL PROVIDER: [facility], LONG TERM CARE MEDICAID BED Discharge Planning Comments: CM MET WITH PT'S SPOUSE IN ICU WAITING ROOM AT HIS REQUEST. SPOUSE REPORTS PT WAS ADMITTED TO [facility] YESTERDAY AND THAT THEY ARE WANTING PT AT [facility] IN [place] WITH [facility]. SPOUSE REPORTS HE HAS CALLED [facility] WHO IS WAITING REFERRAL INFORMATION. CM CALLED [facility], , SPOKE TO [place] WHO REPORTED THAT [facility] DIRECTOR OF PUBLIC SAFETY WAS GOING TO PLACE PT AND HAVE TRANSFERRED. CM EXPLAINED THAT PT IS NOW [facility] PATIENT AND CM'S UNDERSTANDING IS THAT [facility] WOULD TAKE CARE OF PT'S NEEDS. TYRONE WILL CONTACT HER LIBRARIAN SPECIAL COLLECTIONS AND NOTIFY OF FAMILY REQUEST AND WILL CALL [facility] TO DISCUSS HOSPICE TRANSFER. CM NOTIFIED [place] OF [facility] OF PLACEMENT REFERRAL, , FAXED REFERRAL TO [facility]IA [place] AT [phone]. CM FAXED REFERRAL TO [facility] AT [phone]. CM WAITING ADMISSION DETERMINATION FROM [facility] AND FOR [facility] TO MAKE HOSPICE TRANSFER ARRANGEMENTS [facility]. Registered Nurse Behavioral Health: Rehan Sherman DCPIA - Discharge Planning Initial Assessment Updated by [email or web address]: Rehan Sherman on 07/27/18 9:26 am * Is the patient Alert and Oriented? No * How many steps to enter\exit or inside your home? N/A * PCP DR MATTSON * [facility]acy [facility] * [facility] * Facility Name [facility] * ADLs Total Dependent * Equipment Other * Other Equipment ALL EQUIPMENT PROVIDED BY FACILITY * List name and contact numbers for known caregivers / representatives who currently or will assist patient after discharge: GAGANDEEP SAHA, SPOUSE, * Verbal permission to speak to the caregivers and representatives has been obtained from the patient. N/A * Community resources currently utilized Other * Please name any agencies selected above. [facility] * Additional services required to return to the preadmission environment? No * Can the patient safely return to the preadmission environment? Yes * Has this patient been hospitalized within the prior 30 days at any hospital? Yes Last DP export: 07/27/18 2:18 Patient Name: ANICETO SAHA Page [id number] at 153 All edits/amendments must be made on the electronic document DICTATION DATE: 07/27/181534 INSURANCE FOLLOW UP SPECIALIST: ZEE 07/27/181534 RPT#: [id number] DC DATE: STATUS: ADM IN [facility] [address] [place] [address] END OF REPORT
--- NOTE | ~2018-07-25 | MORECARE ---
CASE MANAGEMENT DISCHARGE SUMMARY PATIENT: ANICETO SAHA UNIT: [id number] ADM DATE: 07/25/18 AGE: 78 : 40 SEX: F ROOM/BED: D.2102 AUTHOR: DEWEY,DOC PHYSICIAN: REFERRING PHYSICIAN: SU MATTSON MD DATE OF SERVICE: 07/27/18 Discharge Plan Patient Name: ANICETO SAHA Facility: [facility]:[place] : 1940 Planned Disposition: Nursing Facility [facility] Cert Anticipated Discharge Date: 07/27/18 Discharge Date: Expected LOS: 2 Initial Reviewer: [email or web address] Initial Review Date: 07/25/2018 Generated: 07/27/18 10:43 am Comments DCP- Discharge Planning Updated by [email or web address]: Rehan Sherman on 07/27/18 8:[address] Patient Name: ANICETO SAHA Admission Status: Elective Accout number: [id number] Admission Date: 07-25-2018 : 1940 Admission Diagnosis: Attending: SU MATTSON Current LOS: 2 Anticipated DC Date: 07-27-2018 Planned Disposition: Nursing Facility [facility] Cert Primary Insurance: AETNA MEDICARE PPO or HMO PLANNED EXTERNAL PROVIDER: [facility], LONG TERM CARE MEDICAID BED Discharge Planning Comments: CM MET WITH PT'S SPOUSE IN ICU WAITING ROOM AT HIS REQUEST. SPOUSE REPORTS PT WAS ADMITTED TO [facility] YESTERDAY AND THAT THEY ARE WANTING PT AT [facility] IN [place] WITH [facility]. SPOUSE REPORTS HE HAS CALLED [facility] WHO IS WAITING REFERRAL INFORMATION. CM CALLED [facility], , SPOKE TO TYRONE WHO REPORTED THAT [facility] AUTOMATIC LATHE TENDER WAS GOING TO PLACE PT AND HAVE TRANSFERRED. CM EXPLAINED THAT PT IS NOW [facility] AND CM'S UNDERSTANDING IS THAT [facility] WOULD TAKE CARE OF PT'S NEEDS. TYRONE WILL CONTACT HER ETL DATABASE DEVELOPER AND NOTIFY OF FAMILY REQUEST AND WILL CALL [facility] TO DISCUSS HOSPICE TRANSFER. CM NOTIFIED SALEEM OF [facility] OF PLACEMENT REFERRAL, , FAXED REFERRAL TO [facility] [place] AT [phone]. CM FAXED REFERRAL TO [facility] AT [phone]. CM WAITING ADMISSION DETERMINATION FROM [facility] AND FOR [facility] TO MAKE HOSPICE TRANSFER ARRANGEMENTS [facility]. Pipeliner: Rehan Sherman DCPIA - Discharge Planning Initial Assessment Updated by [email or web address]: Rehan Sherman on 07/27/18 9:26 am * Is the patient Alert and Oriented? No * How many steps to enter\exit or inside your home? N/A * PCP DR MATTSON * Pharmacy [facility] * [facility] * Facility Name [facility] * ADLs Total Dependent * Equipment Other * Other Equipment ALL EQUIPMENT PROVIDED BY FACILITY * List name and contact numbers for known caregivers / representatives who currently or will assist patient after discharge: GAGANDEEP SAHA, SPOUSE, * Verbal permission to speak to the caregivers and representatives has been obtained from the patient. N/A * Community resources currently utilized Other * Please name any agencies selected above. [facility] * Additional services required to return to the preadmission environment? No * Can the patient safely return to the preadmission environment? Yes * Has this patient been hospitalized within the prior 30 days at any hospital? Yes Last DP export: 07/27/18 8:30 Patient Name: ANICETO SAHA Page [id number] at 0943 All edits/amendments must be made on the electronic document DICTATION DATE: 07/27/18942 FOREST ECOLOGY PROFESSOR: ZEE 07/27/18942 RPT#: [id number] [place] DATE: STATUS: ADM IN [facility] [address] [place] [address] END OF REPORT
--- NOTE | ~2018-07-25 | MORECARE ---
CASE MANAGEMENT DISCHARGE SUMMARY PATIENT: ANICETO SAHA UNIT: [id number] ADM DATE: 07/25/18 AGE: 78 : 40 SEX: F ROOM/BED: D.2101 AUTHOR: AMRIT PALOMO PHYSICIAN: REFERRING PHYSICIAN: SU MATTSON MD DATE OF SERVICE: 07/27/18 Discharge Plan Patient Name: ANICETO SAHA [facility] [facility] 1940 Planned Disposition: Nursing Facility [facility] Cert Anticipated Discharge Date: 07/27/18 Discharge Date: Expected LOS: 2 Initial Reviewer: [email or web address] Initial Review Date: 07/25/2018 Generated: 07/27/18 10:30 am DCPIA - Discharge Planning Initial Assessment Updated by [email or web address]: Rehan Sherman on 07/27/18 9:26 am * Is the patient Alert and Oriented? No * How many steps to enter\exit or inside your home? N/A * PCP DR MATTSON * Pharmacy [facility] * [facility] * Facility Name [facility] * ADLs Total Dependent * Equipment Other * Other Equipment ALL EQUIPMENT PROVIDED BY FACILITY * List name and contact numbers for known caregivers / representatives who currently or will assist patient after discharge: GAGANDEEP SAHA, SPOUSE, * Verbal permission to speak to the caregivers and representatives has been obtained from the patient. N/A * Community resources currently utilized Other * Please name any agencies selected above. [facility] * Additional services required to return to the preadmission environment? No * Can the patient safely return to the preadmission environment? Yes * Has this patient been hospitalized within the prior 30 days at any hospital? Yes Last DP export: 07/27/18 8:17 Patient Name: ANICETO SAHA Page 87684 at 0930 All edits/amendments must be made on the electronic document DICTATION DATE: 07/27/18929 LIMOUSINE RENTAL CLERK: ZEE 07/27/18929 RPT#: [id number] DC DATE: STATUS: ADM IN [facility] [address] [place] [address] END OF REPORT
[2018-07-25 19:00] VITALS: BP 77/45
[~2018-07-25 19:24] MED LIST: ACETAMINOPHEN325 MG PO; BASAGLAR K100 UNIT/1; BASAGLAR K100 UNIT/1 SC; COREG 3.1253.125 MG PO; CYMBALTA30 MG PO; DULCOLAX5 MG PO; EFFEXOR XR150 MG PO; GLUCOTROL 5 MG T5 MG PO; KLOR-CON 1010 MEQ PO; LASIX40 MG PO; LEVOXYL25 MCG PO; PACERONE200 MG PO; POTASSIUM CHLO20 MEQ PO; REMERON30 MG PO; SEROQUEL XR50 MG PO
[2018-07-25 19:50] VITALS: BP 77/45
[2018-07-25 20:00] VITALS: BP 104/42
[2018-07-25 20:55] VITALS: BP 77/45; BMI 30.2
[2018-07-25 21:00] VITALS: BP 89/57
[2018-07-25 22:00] VITALS: BP 94/54
[2018-07-26] VITALS: BP 116/51
[2018-07-26 04:00] VITALS: BP 113/48
[2018-07-26 05:37] VITALS: BP 130/41
[2018-07-26 17:00] VITALS: BP 121/62
[2018-07-27 08:58] VITALS: BP 142/45
[2018-07-27 12:21] VITALS: Ht 167.6 cm; Wt 87.6 kg
[2018-07-27] MEDS ORDERED: TYLENOL650 MG RC (13:45)
[2018-07-27] MEDS ORDERED: ATIVAN SL (13:48)
[2018-07-27] MEDS ORDERED: MORPHINE SL (13:50)
[2018-07-27] MEDS ORDERED: SCOPOLAMINE1 EACH TRANSDERM (13:52)
[2018-07-27] MEDS ORDERED: DULCOLAX10 MG/SUPP RC (13:52)
[2018-07-27] MEDS ORDERED: ATROPINE 1% SL (13:52)
== END 2018-07-27 17:12 | disposition home health service (06) | DRG 951 ==
LOC: D.ICU 19:24 → D.M2 20:17 → D.ICU 20:17 → D.M2 07-26 04:26
DX: Z51.5 Encounter for palliative care (principal)